=== PATIENT | male | born 1940 | race Two or more races ===

== ENCOUNTER 2022-11-07 19:58 | Inpatient (IN) | payer MEDICARE, OTHER ==
[~2022-11-07] VITALS: Ht 177.8 cm; Wt 93.9 kg
--- NOTE | 2022-11-07 21:16 | NUR ---
BIBSON FOR BLOOD IN STOOL +WEAKNESS. HYPOTENSIVE AND PALE ON ASSESSMENT HX OF STOMACH ULCER W TRANSFUSION. PLACED IN BED, AAOX3, BREATHING EVEN AND UNLABORED SATURATING AT 97%RA
[2022-11-07] MEDS ORDERED: IV NS 0.9% 1,000 ML BAG IV ONE (21:30)
--- NOTE | 2022-11-07 21:40 | NUR ---
FURNACE BUILDER AT BEDSIDE
[2022-11-07 21:55] LABS: BASOPHILS % (AUTO) 0.4 % (0.0-2.0); LYMPHOCYTES # (AUTO) 0.6 K/uL (0.8-4.8); LYMPHOCYTES % (AUTO) 8.3 % (20.0-44.0); MEAN CORPUSCULAR HGB CONC 32 g/dl (31.0-36.0); MEAN CORPUSCULAR VOLUME 89 fL (80-96); MONOCYTES # (AUTO) 0.4 K/uL (0.1-1.30); MONOCYTES % (AUTO) 5.5 % (2.0-12.0); NEUTROPHILS # (AUTO) 6.7 K/uL (1.8-8.9); NEUTROPHILS % (AUTO) 85.8 % (43.0-81.0); PLATELET COUNT (AUTO) 127 K/uL (150-450); RED BLOOD CELL COUNT(AUTO) 2.05 MIL/uL (4.5-6.0); WHITE BLOOD COUNT (AUTO) 7.8 K/uL (4.3-11.0)
[2022-11-07 21:58] LABS: HEMOGLOBIN 5.8 g/dL (13.5-17.5)
[2022-11-07 21:59] LABS: HEMATOCRIT 18 % (39-51)
--- NOTE | 2022-11-07 22:01 | NUR ---
COVID SWAB DONE AND SENT TO LAB
[2022-11-07 22:03] LABS: ALANINE AMINOTRANSFERASE 10 U/L (12-78); ALBUMIN 2.6 g/dL (3.4-5.0); ALKALINE PHOSPHATASE 32 U/L (46-116); ASPARTATE AMINOTRANSFERASE 11 U/L (15-37); BILIRUBIN,DIRECT 0.1 mg/dL (0.0-0.2); BILIRUBIN,TOTAL 0.5 mg/dL (0.2-1.0); CALCIUM, SERUM 8.3 mg/dL (8.5-10.1); CARBON DIOXIDE 18 mmol/L (21-32); CHLORIDE 107 mmol/L (98-107); CREATININE 1.4 mg/dL (0.6-1.3); GLUCOSE 168 mg/dL (74-106); POTASSIUM 4.2 mmol/L (3.5-5.1); SODIUM SERUM 138 mmol/L (136-145); TOTAL PROTEIN, SERUM 6.1 g/dL (6.4-8.2); UREA NITROGEN, BLOOD 51 mg/dL (7-18)
--- NOTE | 2022-11-07 22:15 | NUR ---
CALLED [facility],SPOKE TO JYOTI. [facility] CONTACTED FOR PEER TO PEER WITH HOSPITALIST AND ER
--- NOTE | 2022-11-07 22:32 | NUR ---
DR CHOW CALLED AND SPOKE TO DR PENN FOR PEER TO PEER
[2022-11-07] MEDS ORDERED: MAG HYDROX/AL HYDROX/SIMETH 30 ML UDC PO PRN (23:30)
[2022-11-07] MEDS ORDERED: IV 1/2NS 1000 ML 1,000 ML IV PRN (23:30)
[2022-11-07] MEDS ORDERED: ACETAMINOPHEN 325 MG TABLET PO PRN (23:30)
[2022-11-07] MEDS ORDERED: MAGNESIUM HYDROXIDE 30 ML UDC PO PRN (23:30)
[2022-11-07] MEDS ORDERED: ZOLPIDEM TARTRATE 5 MG TABLET PO PRN (23:30)
[2022-11-07] MEDS ORDERED: ONDANSETRON HCL/PF 4 MG/2 ML VIAL IVP PRN (23:30)
[2022-11-07] MEDS ORDERED: Z GUARD REMEDY 4 OZ OINT TP PRN (23:30)
[2022-11-08] VITALS (20 sets, daily range): BP systolic 93–120; BP diastolic 46–85
--- NOTE | 2022-11-08 00:11 | NUR ---
ROOM 120-T
--- NOTE | 2022-11-08 00:12 | NUR ---
ALLYSON/SHADI SIGNED BLOOD TRANSFUSION CONSENT FOR PATIENT
--- NOTE | 2022-11-08 00:16 | NUR ---
REPORT GIVEN TO BRICE SURESH
--- NOTE | 2022-11-08 00:50 | NUR ---
TRANSFERRED TO ROOM VIA ACLS PROTOCOL
--- NOTE | 2022-11-08 01:34 | NUR ---
BORDER GUARD ADMISSION NOTES ADMITTED A 82 YEAR OLD MALE UNDER THE SERVICE OF DR. CHOW, A/O X 3 JAMAICAN SPEAKING, ABLE TO FOLLOW COMMANDS. TRANSFERRED TO BED SAFELY AND SECURED. VITALS SIGNS TAKEN AND RECORDED. SKIN ASSESSMENT DONE NOTED LOWER EXTREMITIES SWELLING PICTURES TAKEN AND RECORDED, WITH IV ACCESS AT RIGHT FOREARM #20G PATENT AND INTACT. HISTORY TAKEN AND RECORDED HISTORY WAS GIVEN BY HIS SON. PM CARE RENDERED, PATIENT IS ON NPO FOR NOW, NOTED BLOOD IN THE STOOL. PATIENT IS FOR BLOOD TRANSFUSION AWAITING BLOOD. FAMILY AND PATIENT WAS ORIENTED TO THE UNIT POLICY AND VERBALIZED UNDERSTANDING. NO PAIN OR SOB NOTED AT THIS TIME, NO CHEST PAIN OR DISCOMFORT NOTED. KEPT BED ON LOWER LOCKED POSITION, KEPT SIDE RAILS UP X 3 ALL THE TIME, PATIENT IS ON TOTAL BED REST WITH URINAL AT BEDSIDE, KEPT CALL LIGHT WITHIN AT REACH. KEPT PATIENT WARM AND COMFORTABLE. WILL CONTINUE TO MONITOR FOR BOBBY.
--- NOTE | 2022-11-08 04:55 | NUR ---
COACH WIRER NOTES PATIENT IS POSITIVE TO ANTIBODY, AWAITING BLOOD FROM [facility] PER IMAN OF BLOOD BANK. DR. CHOW MADE AWARE. WILL CONTINUE TO MONITOR
[2022-11-08 05:33] LABS: BASOPHILS % (MANUAL) 0 % (0.0-2.0); EOSINOPHILS % (MANUAL) 2 % (0-4); LYMPHOCYTES % (MANUAL) 10 % (16-48); MONOCYTES % (MANUAL) 7 % (0-11.0); NEUTROPHILS % (MANUAL) 81 (42-76)
--- NOTE | 2022-11-08 06:48 | NUR ---
CHAUFFEUR MOTORBUS CLOSING NOTES PATIENT IS IN BED, AWAKE ON MODERATE HIGH BACK REST POSITION. A/O X 3 SPANISH SPEAKING BUT ABLE TO UNDERSTAND SIMPLE KOREAN, ON ROOM AIR BREATHING EVENLY AND UNLABORED. WITH IV ACCESS AT RIGHT FA #20G WITH NS 1/2 1L AT 75ML/HR INFUSING WELL NO SWELLING OR INFILTRATION NOTED. PATIENT IS ON NPO ORDERED. PATIENT IS POSITIVE ANTIBODY, STILL WAITING FOR BLOOD FROM [facility] DR. CHOW MADE AWARE. KEPT BED ON LOWER LOCKED POSITION, KEPT SIDE RAILS UP X 2 ALL THE TIME, KEPT CALL LIGHT WITHIN AT REACH. ALL DUE MEDICATIONS GIVEN, ALL NEEDS ATTENDED. SAFETY PRECAUTIONS MAINTAINED, NO ACTIVE BLEEDING NOTED, KEPT PATIENT WARM AND COMFORTABLE WILL ENDORSED TO NEXT SHIFT FOR BOBBY.
--- NOTE | 2022-11-08 07:05 | NUR ---
RN OPENING NOTE PATIENT IS IN BED, ASLEEP ON MODERATE HIGH BACK REST POSITION. A/O X 3 POLISH SPEAKING BUT ABLE TO UNDERSTAND SIMPLE CITIZEN OF [place], ON ROOM AIR BREATHING EVENLY AND UNLABORED. WITH IV ACCESS AT RIGHT FA #20G WITH NS 1/2 1L AT 75ML/HR INFUSING WELL NO SWELLING OR INFILTRATION NOTED. PATIENT IS ON NPO ORDERED. PATIENT IS POSITIVE ANTIBODY, STILL WAITING FOR BLOOD FROM [facility]. BED ON LOWER LOCKED POSITION, SIDE RAILS UP X 2 ALL THE TIME, CALL LIGHT WITHIN AT REACH. WILL CONTINUE TO MONITOR.
[2022-11-08 08:31] LABS: BASOPHILS % (AUTO) 0.3 % (0.0-2.0); LYMPHOCYTES # (AUTO) 0.4 K/uL (0.8-4.8); LYMPHOCYTES % (AUTO) 8.4 % (20.0-44.0); MEAN CORPUSCULAR HGB CONC 31 g/dl (31.0-36.0); MEAN CORPUSCULAR VOLUME 92 fL (80-96); MONOCYTES # (AUTO) 0.3 K/uL (0.1-1.30); MONOCYTES % (AUTO) 6.1 % (2.0-12.0); NEUTROPHILS # (AUTO) 3.7 K/uL (1.8-8.9); NEUTROPHILS % (AUTO) 85.2 % (43.0-81.0); PLATELET COUNT (AUTO) 92 K/uL (150-450); WHITE BLOOD COUNT (AUTO) 4.3 K/uL (4.3-11.0)
[2022-11-08 08:34] LABS: RED BLOOD CELL COUNT(AUTO) 1.47 MIL/uL (4.5-6.0)
[2022-11-08] MEDS: PANTOPRAZOLE 40 MG VIAL IV SCH (08:34)
[2022-11-08 08:35] LABS: HEMOGLOBIN 4.3 g/dL (13.5-17.5)
--- NOTE | 2022-11-08 08:35 | NUR ---
GOT PHONE ZULEIKA FROM LAB RE HGT CRITICAL VALUE, PATIENTS HEMOGLOBIN LEVEL IS 4.3 WILL CONTACT AND BLOOD BANK
[2022-11-08 08:36] LABS: HEMATOCRIT 14 % (39-51)
--- NOTE | 2022-11-08 08:38 | NUR ---
MOUNTER SMOKING PIPE NOTES Lab called to relay critical lab value HGB 4.3 and hematocrit 14. Made Primary nurse aware.
[2022-11-08 08:47] LABS: CALCIUM, SERUM 7.8 mg/dL (8.5-10.1); CREATININE 1.2 mg/dL (0.6-1.3); MAGNESIUM 1.9 mg/dL (1.8-2.4); PHOSPHORUS 3.1 mg/dL (2.5-4.9)
--- NOTE | 2022-11-08 08:50 | NUR ---
TRIED TO CONTACT BLOOD BANK, NO ANSWER, CHECK THE ORDER FOR CROSS AND MATCH, BLOOD IS NOT AVAILABLE BECAUSE ANTIBODIES.
--- NOTE | 2022-11-08 09:00 | NUR ---
TEXTED DR KAPLAN RE PT BLOOD RESULT
--- NOTE | 2022-11-08 09:15 | NUR ---
CONSULTED WITH NURSE ROSS CARRIER DRIVER. WAITING FOR [facility] BLOOD AVAILABILITY
--- NOTE | 2022-11-08 09:20 | NUR ---
NURSING DELIVERY PROFESSIONAL JOANNA SPOKE TO YUE VELASCO REGARDING FOR PT TSYMBALOV, REP FROM [facility] NAMED RACHEL CONFIRMED THAT THEY WORKING ON THIS ORDER BUT NO AVAILABILITY AT THIS TIME.
--- NOTE | 2022-11-08 09:25 | NUR ---
CALL [facility] TO REACH DR KAPLAN, REGARDING POSSIBLE GI CONSULT FOR THIS PT, LEFT A MESSAGE
--- NOTE | 2022-11-08 10:00 | NUR ---
called in and ok to consult to Dr Rivera and left message to telepnone and surgery department
[2022-11-08] MEDS ORDERED: IV 1/2NS 1000 ML 1,000 ML IV PRN (10:44)
[2022-11-08 11:07] LABS: BAND % (MANUAL) 3 % (0.0-5.0); BASOPHILS % (MANUAL) 0 % (0.0-2.0); EOSINOPHILS % (MANUAL) 1 % (0-4); LYMPHOCYTES % (MANUAL) 9 % (16-48); MONOCYTES % (MANUAL) 7 % (0-11.0); NEUTROPHILS % (MANUAL) 80 (42-76)
[2022-11-08 12:15] LABS: HEMOGLOBIN 3.9 g/dL (13.5-17.5)
--- NOTE | 2022-11-08 14:50 | NUR ---
TRANSFERRED PATIENT TO ICU D/T SEVERE ANEMIA, HGB 3.9 AT 11:50, WEAKNESS. WAITING TO GET BLOOD FROM [facility]. FAMILY NOTIFIED.
--- NOTE | 2022-11-08 14:50 | NUR ---
Admit to ICU Pt severe anemia. 1130 - Hgb 3.9 Scheduled to Received Blood Transfusion once received from [facility] Currently receiving plasma started in tele, infusing upon arrival. pt remains aaox4, utilized Ruassian viticulturist VSS, No distress noted 2nd IV started to Lt arm by ICU Charge nurse upon arrival.
--- NOTE | 2022-11-08 18:55 | NUR ---
Blood Transfusoion pending PRBC still not available at this time from [facility] Pt received 2units FFP as ordered. No overt signs of bleeding noted Cont IVF as ordered VSS, no respiratory distress noted
--- NOTE | 2022-11-08 19:59 | NUR ---
EMULSION COATER. INITIAL ASSESSMENT, RECEIVED THE PT REST IN BED. AWAKE, ALERT. FOLLOW COMMANDS. CLINICAL RECRUITER SHOWING NSR. IV RT AND LT HAND. PT IS ROOM AIR. SAT 98%. NO ACUTE DISTRESS NOTED.IVF 1.2 NS 150 ML/H. WILL CONTINUE TO MONITOR VITALS.
[2022-11-09] VITALS (38 sets, daily range): BP systolic 98–119; BP diastolic 43–86
--- NOTE | 2022-11-09 03:15 | NUR ---
FINANCIAL RESERVE CLERK. AM CARE GIVEN. REMAINING SAME IVF RUNNING. HOB ELEVATED. 2 UNITS PRBC GIVEN. DURING TRANSFUSION NO COMPLICATION NOTED. TURN AND REPOSITION Q2H. WILL CONTINUE TO MONITOR VITALS.
[2022-11-09 05:02] LABS: BASOPHILS % (AUTO) 0.5 % (0.0-2.0); EOSINOPHILS % (AUTO) 0.6 % (0.0-6.0); LYMPHOCYTES # (AUTO) 0.5 K/uL (0.8-4.8); LYMPHOCYTES % (AUTO) 12.3 % (20.0-44.0); MEAN CORPUSCULAR HGB CONC 34 g/dl (31.0-36.0); MEAN CORPUSCULAR VOLUME 85 fL (80-96); MONOCYTES # (AUTO) 0.4 K/uL (0.1-1.30); MONOCYTES % (AUTO) 11.7 % (2.0-12.0); NEUTROPHILS # (AUTO) 2.8 K/uL (1.8-8.9); NEUTROPHILS % (AUTO) 74.9 % (43.0-81.0); PLATELET COUNT (AUTO) 81 K/uL (150-450); WHITE BLOOD COUNT (AUTO) 3.8 K/uL (4.3-11.0)
[2022-11-09 05:10] LABS: HEMATOCRIT 15 % (39-51); RED BLOOD CELL COUNT(AUTO) 1.74 MIL/uL (4.5-6.0)
[2022-11-09 05:18] LABS: ALBUMIN 2.2 g/dL (3.4-5.0); BILIRUBIN,TOTAL 0.6 mg/dL (0.2-1.0); CALCIUM, SERUM 7.9 mg/dL (8.5-10.1); MAGNESIUM 1.8 mg/dL (1.8-2.4); PHOSPHORUS 3.3 mg/dL (2.5-4.9); POTASSIUM 3.6 mmol/L (3.5-5.1); TOTAL PROTEIN, SERUM 4.9 g/dL (6.4-8.2)
[2022-11-09 07:14] LABS: BILIRUBIN,URINE NEGATIVE (NEGATIVE); COLOR,URINE YELLOW (YELLOW); LEUKOCYTE ESTERASE ,URINE 1+ (NEGATIVE); NITRITE, URINE NEGATIVE (NEGATIVE); PH,URINE 5.5 (5.0-8.0); PROTEIN,URINE NEGATIVE (NEGATIVE); UGLUCOSE NEGATIVE (NEGATIVE); UROBILINOGEN,URINE 0.2 EU/dL (0.2)
--- NOTE | 2022-11-09 07:15 | NUR ---
ATM MECHANIC NOTE Patient is resting in bed, GCS [id number], bilateral pupils 3mm PEARLA. lunchroom monitor showed SR HR 60/min,MAP>65mmHg. SPo2 100% RA. Right hand and left forearm IV sites are dry and intact, patent upon flush. 1/2 NS running at 150mL/hr via right hand. Repositioning is done. Will continue monitoring and care.
[2022-11-09 07:48] LABS: BACTERIA,URINE Rare /HPF (None Seen); RBC,URINE 0-2 /HPF (0-2); SQUAMOUS EPITHELIAL CELL,UR Rare /HPF (None Seen)
[2022-11-09 08:44] LABS: BAND % (MANUAL) 4 % (0.0-5.0); EOSINOPHILS % (MANUAL) 1 % (0-4); LYMPHOCYTES % (MANUAL) 16 % (16-48); METAMYELOCYTES % 1 % (0-0); MONOCYTES % (MANUAL) 10 % (0-11.0); MYELOCYTES % 1 % (0-0); NEUTROPHILS % (MANUAL) 67 (42-76)
[2022-11-09] MEDS: PANTOPRAZOLE 40 MG VIAL IV SCH (08:50)
[2022-11-09] MEDS: IV D5/0.45 NACL 1,000 ML IV PRN ×2 (08:50→21:48)
--- NOTE | 2022-11-09 13:47 | NUR ---
VIDEO AND SOUND RECORDER NOTE Urine is collected for urine culture.
[2022-11-09 17:27] LABS: EOSINOPHILS % (AUTO) 3.5 % (0.0-6.0); LYMPHOCYTES # (AUTO) 0.3 K/uL (0.8-4.8); LYMPHOCYTES % (AUTO) 13.4 % (20.0-44.0); MEAN CORPUSCULAR HGB CONC 33 g/dl (31.0-36.0); MEAN CORPUSCULAR VOLUME 86 fL (80-96); MONOCYTES # (AUTO) 0.3 K/uL (0.1-1.30); MONOCYTES % (AUTO) 10.8 % (2.0-12.0); NEUTROPHILS # (AUTO) 1.9 K/uL (1.8-8.9); NEUTROPHILS % (AUTO) 71.3 % (43.0-81.0); PLATELET COUNT (AUTO) 78 K/uL (150-450); WHITE BLOOD COUNT (AUTO) 2.6 K/uL (4.3-11.0)
[2022-11-09 17:36] LABS: RED BLOOD CELL COUNT(AUTO) 1.94 MIL/uL (4.5-6.0)
[2022-11-09 17:37] LABS: HEMOGLOBIN 5.5 g/dL (13.5-17.5)
[2022-11-09 17:38] LABS: HEMATOCRIT 17 % (39-51)
--- NOTE | 2022-11-09 17:42 | NUR ---
PROGRAM STRATEGIST NOTE Received a critical lab that hemoglobin is 5.5 g/dL with Hct 17. Informed MD Dr. Cordero, who ordered another unit of blood.
--- NOTE | 2022-11-09 20:01 | NUR ---
CALLED BLOOD BANK, PER CLS LAST BAG OF PRBC NOT READY YET.
[2022-11-09 20:13] LABS: BAND % (MANUAL) 4 % (0.0-5.0); EOSINOPHILS % (MANUAL) 6 % (0-4); LYMPHOCYTES % (MANUAL) 14 % (16-48); MONOCYTES % (MANUAL) 2 % (0-11.0); NEUTROPHILS % (MANUAL) 74 (42-76)
--- NOTE | 2022-11-09 20:50 | NUR ---
4TH BAG OF PRBC STARTED AT THIS TIME WITH VITAL SIGNS WNL.
--- NOTE | 2022-11-09 20:54 | NUR ---
FAMILY PSYCHOLOGIST OPENING NOTE PT RECEIVED IN BED WITH SON AT BEDSIDE; AWAKE, HONDURAN-SPEAKING, A/O X4, CALM, COOPERATIVE. PT ON RA WITH CURRENT O2SAT OF 99%; NO S/S OF RESP DISTRESS, NO SOB, NON-LABORED AND EQUAL BREATHING. PT ATTACHED TO BEDSIDE MONITOR, SR WITH HR OF 63. PT'S SKIN APPEARS PALE, CAP REFILL <3 SEC, NORMAL AND PALPABLE PULSES. LEFT LEG NOTED TO BE EDEMATOUS AND INCREASED IN SIZE; PULSES PALPABLE AND CAP REFILL <3 SEC; NO PAIN PER PT REPORT. IV ACCESS ON RFA AND LFA 20G, INTACT AND PATENT WITH D5 1/2 NS INFUSING AT 150 ML/HR. BED IN LOWEST POSITION, CALL LIGHT WITHIN REACH, SIDE RAILS UP X2. WILL CONTINUE TO MONITOR THROUGHOUT THE NIGHT.
--- NOTE | 2022-11-09 23:05 | NUR ---
PRBC TRANSFUSION FINISHED AT THIS TIME WITH VITAL SIGNS STABLE, NO COMPLICATIONS NOTED; PT TOLERATED TRANSFUSION WELL
[2022-11-10] VITALS (26 sets, daily range): BP systolic 90–118; BP diastolic 37–65
[2022-11-10 04:10] LABS: BASOPHILS % (AUTO) 1.5 % (0.0-2.0); EOSINOPHILS % (AUTO) 4.8 % (0.0-6.0); LYMPHOCYTES # (AUTO) 0.4 K/uL (0.8-4.8); LYMPHOCYTES % (AUTO) 17.9 % (20.0-44.0); MEAN CORPUSCULAR HGB CONC 34 g/dl (31.0-36.0); MEAN CORPUSCULAR VOLUME 88 fL (80-96); MONOCYTES # (AUTO) 0.2 K/uL (0.1-1.30); MONOCYTES % (AUTO) 11.9 % (2.0-12.0); NEUTROPHILS # (AUTO) 1.3 K/uL (1.8-8.9); NEUTROPHILS % (AUTO) 63.9 % (43.0-81.0); PLATELET COUNT (AUTO) 72 K/uL (150-450); WHITE BLOOD COUNT (AUTO) 2.1 K/uL (4.3-11.0)
[2022-11-10 04:19] LABS: RED BLOOD CELL COUNT(AUTO) 1.97 MIL/uL (4.5-6.0)
[2022-11-10 04:20] LABS: HEMATOCRIT 17 % (39-51); HEMOGLOBIN 5.8 g/dL (13.5-17.5)
[2022-11-10 04:25] LABS: ALBUMIN 2.1 g/dL (3.4-5.0); BILIRUBIN,TOTAL 0.7 mg/dL (0.2-1.0); CALCIUM, SERUM 7.5 mg/dL (8.5-10.1); CREATININE 0.9 mg/dL (0.6-1.3); MAGNESIUM 1.7 mg/dL (1.8-2.4); PHOSPHORUS 2.5 mg/dL (2.5-4.9); POTASSIUM 3.2 mmol/L (3.5-5.1); TOTAL PROTEIN, SERUM 4.7 g/dL (6.4-8.2)
--- NOTE | 2022-11-10 04:43 | NUR ---
RN NOTE RECEIVED CRITICAL FROM LAB; HGB/HCT 5.8/17; THOUGH TRENDING UP CONTINUES TO BE LOW AFTER 2 PRBCS TRANSFUSED YESTERDAY (1 IN AM, 1 IN PM). VELIA CHOW NOTIFIED; AWAITING RESPONSE. Addendum: 11/10/22 at 0623 by PRINCESS SLOANE NARVAEZ RECEIVED ORDER FROM CLAUDINE FOR 1 UNIT PRBC
[2022-11-10] MEDS: IV D5/0.45 NACL 1,000 ML IV PRN (05:15)
[2022-11-10 05:48] LABS: BAND % (MANUAL) 4 % (0.0-5.0); BASOPHILS % (MANUAL) 0 % (0.0-2.0); EOSINOPHILS % (MANUAL) 4 % (0-4); LYMPHOCYTES % (MANUAL) 15 % (16-48); MONOCYTES % (MANUAL) 9 % (0-11.0); NEUTROPHILS % (MANUAL) 68 (42-76)
--- NOTE | 2022-11-10 06:44 | NUR ---
TAKER OFF BRAKER MACHINE CLOSING NOTE PT REMAINS IN BED, ASLEEP, EASILY AROUSABLE, A/O X4. CONTINUES TO BE ON RA WITH O2SAT RANGING FROM 97%-100%; NO S/S OF RESP DISTRESS, NO SOB, NON-LABORED AND EQUAL BREATHING. ATTACHED TO BEDSIDE MONITOR, SB-SR WITH HR RANGING FROM 49-63. RFA AND LFA 20G INTACT AND PATENT, FLUSHES EASILY WITH NO RESISTANCE; D51/2 NS INFUSING AT 150 ML/HR. ALL DUE MEDS ADMINISTERED DURING THE NIGHT. BED IN LOWEST POSITION, CALL LIGHT WITHIN REACH, SIDE RAILS UP X2. WILL ENDORSE TO DAYSHIFT NURSE TO CONTINUE CARE.
[2022-11-10] MEDS: PANTOPRAZOLE 40 MG VIAL IV SCH ×2 (09:24→20:48)
[2022-11-10] MEDS: POTASSIUM CL. PREMIX PERIPHER. 50 ML IV SCH ×4 (09:24→12:28)
[2022-11-10] MEDS: Magnesium 1GM/D5W 100ML PREMIX 100 ML IV SCH ×2 (11:20→12:19)
--- NOTE | 2022-11-10 19:15 | NUR ---
Verbal bedside report received from Rock NARVAEZ day primary . Pt. is awake in bed watching TV. pharmacy stock clerk in usedepicting SB with no ectopic beats at this time. VS monitored q 1 hr. per unit protocol. Complete inital assessment rendered . See nursing flowsheet for details. Chart reveiwed. Lab orders discussed with the laboratory analyst Hunter. New labs will be drawn in the A.M. Pt. with no c/o or concerns at this time. Monitored for acute distress,s/s of bleeding, pain and overall change in clinical status.
--- NOTE | 2022-11-10 20:30 | NUR ---
Pt. son Daniel in visiting. Plan of care discussed. Son states his father has slow recovery from his past EGD's and colonoscopy. Said pt. stays disoriented and confused for several days after procedures. Awaiting lab results to decide further care per son.
--- NOTE | 2022-11-10 21:45 | NUR ---
Radiology dept. called to give results of venous scan. Pt.has DVT's in bilat. lower extremities. Isak Borja CHAIRMAN & CHIEF EXECUTIVE OFFICER notified via text message immediately. No interventions ordered at this time. Pt. hgb. very low and is GI bleeding.
[2022-11-11] VITALS (38 sets, daily range): BP systolic 91–150; BP diastolic 46–83
[2022-11-11 03:12] LABS: MEAN CORPUSCULAR HGB CONC 34 g/dl (31.0-36.0); MEAN CORPUSCULAR VOLUME 86 fL (80-96); MONOCYTES # (AUTO) 0.3 K/uL (0.1-1.30)
[2022-11-11 03:27] LABS: RED BLOOD CELL COUNT(AUTO) 2.33 MIL/uL (4.5-6.0); WHITE BLOOD COUNT (AUTO) 2.3 K/uL (4.3-11.0)
[2022-11-11 03:28] LABS: BASOPHILS % (AUTO) 1.3 % (0.0-2.0); EOSINOPHILS % (AUTO) 5.7 % (0.0-6.0); LYMPHOCYTES % (AUTO) 15.3 % (20.0-44.0); MONOCYTES % (AUTO) 14.9 % (2.0-12.0); NEUTROPHILS % (AUTO) 62.8 % (43.0-81.0); PLATELET COUNT (AUTO) 80 K/uL (150-450)
[2022-11-11 03:29] LABS: ALANINE AMINOTRANSFERASE 13 U/L (12-78); ALBUMIN 2.2 g/dL (3.4-5.0); ALKALINE PHOSPHATASE 36 U/L (46-116); ASPARTATE AMINOTRANSFERASE 17 U/L (15-37); BILIRUBIN,TOTAL 1.4 mg/dL (0.2-1.0); CALCIUM, SERUM 7.5 mg/dL (8.5-10.1); CARBON DIOXIDE 20 mmol/L (21-32); CHLORIDE 114 mmol/L (98-107); CREATININE 0.9 mg/dL (0.6-1.3); GLUCOSE 101 mg/dL (74-106); LYMPHOCYTES # (AUTO) 0.4 K/uL (0.8-4.8); NEUTROPHILS # (AUTO) 1.5 K/uL (1.8-8.9); POTASSIUM 3.4 mmol/L (3.5-5.1); SODIUM SERUM 142 mmol/L (136-145); UREA NITROGEN, BLOOD 28 mg/dL (7-18)
[2022-11-11 03:31] LABS: HEMATOCRIT 20 % (39-51); HEMOGLOBIN 6.7 g/dL (13.5-17.5)
--- NOTE | 2022-11-11 03:32 | NUR ---
LATE ENTRY:ASSISTANT PRODUCE MANAGER: 11/10/22 @1900.ENDED BT OF I UNIT PRBC W/ NO REACTION VITAL SIGNS:TEMPT.-97.9/F ORAL,BP-116/42,HR-53, RR-13/MIN. SATS.-100%.
[2022-11-11 03:36] LABS: D-DIMER 14.53 mg/L(FEU (0.17-0.50)
[2022-11-11 03:46] LABS: PROSTATE SPECIFIC ANTIGEN SCR 0.35 ng/mL (0.00-4.00)
[2022-11-11] MEDS: IV D5/0.45 NACL 1,000 ML IV PRN ×3 (05:49→18:57)
[2022-11-11 06:26] LABS: EOSINOPHILS % (MANUAL) 4 % (0-4); LYMPHOCYTES % (MANUAL) 17 % (16-48); MONOCYTES % (MANUAL) 10 % (0-11.0); NEUTROPHILS % (MANUAL) 69 (42-76)
--- NOTE | 2022-11-11 07:21 | NUR ---
Pt. endorsed injury free to oncoming primary RN. VSS stable. no c/o or concerns addressed from pt. at this time.
[2022-11-11] MEDS: PANTOPRAZOLE 40 MG VIAL IV SCH ×2 (08:03→21:46)
--- NOTE | 2022-11-11 09:17 | NUR ---
PER BLOOD BANK DEPT. -NOVEMBER " I WILL CALL BACK ONCE 2nd FFP BAG IS READY."
[2022-11-11 09:33] LABS: IRON, SERUM 46 ug/dl (50-175); TOTAL IRON BINDING CAPACITY 201 ug/dl (250-450)
[2022-11-11 09:46] LABS: D-DIMER 13.91 mg/L(FEU (0.17-0.50)
[2022-11-11 09:47] LABS: FERRITIN 160 ng/mL (8-388)
[2022-11-11] MEDS: POTASSIUM CL. PREMIX PERIPHER. 50 ML IV SCH ×2 (10:23→11:27)
[2022-11-11 10:28] LABS: C-REACTIVE PROTEIN < 0.2 mg/dL (0.0-0.9)
[2022-11-11] MEDS ORDERED: PHYTONADIONE INJ 10 MG/1 ML AMPUL SQ SCH (10:30)
[2022-11-11] MEDS ORDERED: ACETAMINOPHEN 325 MG TABLET PO ONE (10:30)
[2022-11-11] MEDS ORDERED: diphenhydrAMINE HCL 50 MG/ML VIAL IV ONE (10:30)
--- NOTE | 2022-11-11 11:10 | NUR ---
NOTIFIED DR RENE THAT 2ND BAG OF FFP IS TRANSFUSING AND VERIFIED REGARDING TYLENOL AND BENADRYL, PER DR RENE " OKAY NOT TO GIVE BENADRYL AND TYLENOL NOW."
[2022-11-11] MEDS: CEFEPIME 2 GM in IV D5W 100 ML IV SCH ×2 (13:44→21:46)
--- NOTE | 2022-11-11 13:50 | NUR ---
PER BLOOD BANK FEMALE STAFF- MAY " CRYO NOT YET READY." CHARGE NURSE-RCISSY AWARE.
--- NOTE | 2022-11-11 14:15 | NUR ---
ENDORSED TO RN-DENISE FOR CONTINUITY OF CARE. PATIENT NO SSX OF APPARENT DISTRESS NOTED AT THIS TIME.
--- NOTE | 2022-11-11 14:16 | NUR ---
POT WASHER NOTE RECEIVED PATIENT IN BED RESTING ALERT ORIENTED X4 JORDANIAN SPEAKING,ON ROOM AIR O2:99% IV SITE IS ON RIGHT MIDLINE AND RIGHT FOREARM,LEFT FOREARM INTACT PATENT CONTINENT BOWEL/BLADDER.ON IV HYDRATION D51/2NS 150CC/HR,SAFETY MEASURE IMPLEMENT BED IN LOW POSITON AND LOCKED CALL LIGHT WITHIN REACH CONTINUE TO MONITOR.
--- NOTE | 2022-11-11 16:59 | NUR ---
RN NOTE 2 BAG OF CRYO GIVEN PER MD ORDERED CONTINUE TO MONITOR.
[2022-11-11] MEDS ORDERED: FERROUS SULFATE (325 MG) 325 MG/TAB TABLET PO SCH (17:00)
--- NOTE | 2022-11-11 17:00 | NUR ---
RN NOTE PER DR RENE,PATIENT SHOULD CONSULT WITH VACULAGlenn EAVNS NOTIFIED CORPORATE CLAIMS EXAMINER NANCY MUNOZ,CONTINUE TO MONITOR.
[2022-11-11] MEDS: FERROUS SULFATE (325 MG) 325 MG/TAB TABLET PO SCH (17:04)
--- NOTE | 2022-11-11 18:42 | NUR ---
RN NOTE PATIENT REMAINS ALERT ORIENTED X4 VERBALLY RESPONSIVE ON ROOM AIR O2:100% NO SOB NOT ACUTE DISTRESS NOTED,NO PAIN WILL ENDORSE NEXT COMING SHIFT FOR CONTINUATION OF CARE.
--- NOTE | 2022-11-11 19:23 | NUR ---
RECEIVED PATIENT IN BED, AWAKE AND RESTING COMFORTABLY. ALERT ORIENTED X4 ANGUILLAN SPEAKING,ON ROOM AIR. WITH AN O2SAT OF 99%. ON NPO EXCEPT MEDS. CONTINENT AND ABLE TO URINATE USING URINAL. IV SITE IS ON TINO MIDLINE, RIGHT FOREARM AND LEFT FOREARM INFUSING D51/2NS AT 150 ML/HR. SAFETY MEASURES IN PLACE. HOB ELEVATED. SIDERAILS UP X2. CALL LIGHT WITHIN REACH. WILL CONTINUE PLAN OF CARE.
[2022-11-12] VITALS (39 sets, daily range): BP systolic 89–148; BP diastolic 51–90
[2022-11-12] MEDS: IV D5/0.45 NACL 1,000 ML IV PRN ×3 (01:17→15:50)
[2022-11-12] MEDS: CEFEPIME 2 GM in IV D5W 100 ML IV SCH ×3 (04:10→20:09)
[2022-11-12 04:17] LABS: EOSINOPHILS % (AUTO) 6.7 % (0.0-6.0); HEMATOCRIT 21 % (39-51); LYMPHOCYTES # (AUTO) 0.3 K/uL (0.8-4.8); LYMPHOCYTES % (AUTO) 14.3 % (20.0-44.0); MEAN CORPUSCULAR HGB CONC 32 g/dl (31.0-36.0); MEAN CORPUSCULAR VOLUME 91 fL (80-96); MONOCYTES # (AUTO) 0.4 K/uL (0.1-1.30); MONOCYTES % (AUTO) 15.8 % (2.0-12.0); NEUTROPHILS # (AUTO) 1.4 K/uL (1.8-8.9); NEUTROPHILS % (AUTO) 62.2 % (43.0-81.0); PLATELET COUNT (AUTO) 92 K/uL (150-450); WHITE BLOOD COUNT (AUTO) 2.2 K/uL (4.3-11.0)
[2022-11-12 04:23] LABS: CALCIUM, SERUM 7.9 mg/dL (8.5-10.1); CREATININE 0.9 mg/dL (0.6-1.3); POTASSIUM 3.2 mmol/L (3.5-5.1)
[2022-11-12 04:35] LABS: HEMOGLOBIN 6.6 g/dL (13.5-17.5)
--- NOTE | 2022-11-12 04:41 | NUR ---
Hgb 6.6, Hct 21. Attending physician informed. PRBCx2 previously ordered. Waiting for PRBC to be ready.
[2022-11-12 04:50] LABS: D-DIMER 14.95 mg/L(FEU (0.17-0.50)
--- NOTE | 2022-11-12 07:05 | NUR ---
RN NOTES RECEIVED PT ON BED, ALERT ORIENTED X3. SURINAMESE SPEAKING. ON ROOM AIR, ON TELE SB HR IN MURIEL 50'S, ON NPO EXCEPT MEDS. CONTINENT AND ABLE TO URINATE USING URINAL. IV SITES CLEAN/ DRY AND INTACT,IVF D51/2NS AT 150 ML/HR. SAFETY MEASURES MAINTAINED. SR UP x3, HOB ELEVATED. CALL LIGHT WITHIN EASY REACH, BED LOCKED AND IN LOWEST POSITION, CONTINUE TO MONITOR.
--- NOTE | 2022-11-12 07:12 | NUR ---
PATIENT IN BED, ASLEEP AND RESTING COMFORTABLY. EASILY AROUSABLE/RESPOSIVE. ALERT ORIENTED X4. BERMUDIAN SPEAKING. ON ROOM AIR. WITH AN O2SAT OF 99%. HR 58. ON NPO EXCEPT MEDS. CONTINENT AND ABLE TO URINATE USING URINAL. IV SITE IS ON TINO MIDLINE, RIGHT FOREARM AND LEFT FOREARM INFUSING D51/2NS AT 150 ML/HR. SAFETY MEASURES MAINTAINED. HOB ELEVATED. SIDERAILS UP X2. CALL LIGHT WITHIN REACH. WILL ENDORSE TO NEXT NURSE ON DUTY FOR CONTINUITY OF CARE.
[2022-11-12] MEDS: FERROUS SULFATE (325 MG) 325 MG/TAB TABLET PO SCH ×2 (08:27→16:07)
[2022-11-12] MEDS: PANTOPRAZOLE 40 MG VIAL IV SCH ×2 (08:27→20:09)
[2022-11-12] MEDS: POTASSIUM CL. PREMIX PERIPHER. 50 ML IV SCH ×4 (09:45→13:34)
--- NOTE | 2022-11-12 13:00 | NUR ---
RN NOTES BLOOD IS NOT AVAILABLE PER BLOOD BANK . CONTINUE TO FOLLOW UP AND MONITOR PT .
[2022-11-12 13:07] LABS: *ANA ANTI-CENTROMERE B AB <0.2 AI (0.0-0.9); *ANA ANTI-DNA(DS) AB, QN <1 IU/mL (0-9); *ANA ANTI-JO-1 <0.2 AI (0.0-0.9); *ANA ANTICHROMATIN ANTIBODY <0.2 AI (0.0-0.9); *ANA RNP ANTIBODIES 0.8 AI (0.0-0.9); *ANA SJOGREN'S ANTI-SS-A <0.2 AI (0.0-0.9); *ANA SJOGREN'S ANTI-SS-B <0.2 AI (0.0-0.9); *ANAANTI-SCLERODERMA-70 AB <0.2 AI (0.0-0.9); *ANASMITH AB <0.2 AI (0.0-0.9)
[2022-11-12 13:59] LABS: BAND % (MANUAL) 1 % (0.0-5.0); EOSINOPHILS % (MANUAL) 7 % (0-4); LYMPHOCYTES % (MANUAL) 13 % (16-48); MONOCYTES % (MANUAL) 8 % (0-11.0); NEUTROPHILS % (MANUAL) 71 (42-76)
--- NOTE | 2022-11-12 18:03 | NUR ---
RN NOTES PT SON STATED ,HE WANTS TO TALK TO PT'S PRIMARY CARE OUTSIDE AND WILL LET US KNOW IF THEY WANT TO PRECEDE WITH BONE MARROW BX.
[2022-11-12] MEDS ORDERED: LIDOCAINE 1% INJ 50 ML MDV IJ ONE (18:30)
--- NOTE | 2022-11-12 18:37 | NUR ---
RN NOTES NO SIGN OF ACTIVE BLEEDING NOTED, PT DENIES ANY DISTRESS AT THIS TIME, WILL ENDORSE TO DECORATING MACHINE TENDER NURSE FOR CONTINUITY OF CARE .
--- NOTE | 2022-11-12 19:00 | NUR ---
RN NOTE REPORT RECEIVED FROM JESI NARVAEZ, PT IN BED, IN NO ACUTE DISTRESS, AO X 4, BREATHING UNLABORED, SATURATION AT 99% ON ROOM AIR, SR ON THE MONITOR, HR IS 61. IV LINE AT RFA 20G, LFA 20G AND TINO MIDLINE ALL PATENT AND FLUSHING WELL, WITH D5 1/2 NS INFUSING AT 150 ML/HR. PT IS CONTINENT AND ABLE TO USE URINAL, NOTED 300 ML OF CLEAR, YELLOW OUTPUT. SAFETY MEASURES IN PLACE, BED IS LOCKED AND AT LOWEST POSITION, HOB ELEVATED, CALL LIGHT WITHIN REACH OF PATIENT. PATIENT KEPT NPO PER ORDERS. WILL CONTINUE TO MONITOR AND REASSESS. AWAITING TRANSFUSION OF 2 MORE UNITS OF PRBC.
--- NOTE | 2022-11-12 19:22 | NUR ---
RN NOTE DR RENE AT BEDSIDE, PER FAMILY WILL CONSULT PT'S PRIMARY MD BEFORE DECIDING ON EGD, AND BONE MARROW BIOPSY. DR RENE WAS MADE AWARE. ORDERED SUPPLIES NEEDED FOR BONE MARROW BIOPSY PREPARED AND PLACED AT BEDSIDE.
[2022-11-12] MEDS: SOD FERRIC GLUC 125 MG in IV NS 0.9% 100 ML IV SCH (19:32)
[2022-11-12] MEDS ORDERED: diphenhydrAMINE HCL 50 MG/ML VIAL IV ONE (21:00)
[2022-11-12] MEDS ORDERED: ACETAMINOPHEN 325 MG TABLET PO ONE (21:00)
[2022-11-13] VITALS (27 sets, daily range): BP systolic 113–154; BP diastolic 47–80
--- NOTE | 2022-11-13 02:20 | NUR ---
RN NOTE END OF TRANSFUSION, S/P 2 UNITS PRBC. NO TRANSFUSION REACTION NOTED, VS ARE WNL.
[2022-11-13] MEDS: IV D5/0.45 NACL 1,000 ML IV PRN ×3 (04:59→21:50)
[2022-11-13] MEDS: CEFEPIME 2 GM in IV D5W 100 ML IV SCH ×3 (05:02→21:48)
[2022-11-13 05:08] LABS: *IFE ALPHA-2-GLOBULIN 0.3 g/dL (0.4-1.0)
[2022-11-13 05:11] LABS: BASOPHILS % (AUTO) 1.4 % (0.0-2.0); EOSINOPHILS % (AUTO) 8.9 % (0.0-6.0); HEMATOCRIT 24 % (39-51); HEMOGLOBIN 8.1 g/dL (13.5-17.5); LYMPHOCYTES # (AUTO) 0.4 K/uL (0.8-4.8); LYMPHOCYTES % (AUTO) 14.1 % (20.0-44.0); MEAN CORPUSCULAR HGB CONC 33 g/dl (31.0-36.0); MEAN CORPUSCULAR VOLUME 86 fL (80-96); MONOCYTES # (AUTO) 0.5 K/uL (0.1-1.30); MONOCYTES % (AUTO) 18.7 % (2.0-12.0); NEUTROPHILS # (AUTO) 1.5 K/uL (1.8-8.9); NEUTROPHILS % (AUTO) 56.9 % (43.0-81.0); PLATELET COUNT (AUTO) 103 K/uL (150-450); RED BLOOD CELL COUNT(AUTO) 2.82 MIL/uL (4.5-6.0); WHITE BLOOD COUNT (AUTO) 2.7 K/uL (4.3-11.0)
[2022-11-13 05:26] LABS: D-DIMER 16.57 mg/L(FEU (0.17-0.50)
[2022-11-13 05:45] LABS: CARBON DIOXIDE 22 mmol/L (21-32); CHLORIDE 112 mmol/L (98-107); CREATININE 0.9 mg/dL (0.6-1.3); GLUCOSE 103 mg/dL (74-106); POTASSIUM 3.8 mmol/L (3.5-5.1); SODIUM SERUM 143 mmol/L (136-145); UREA NITROGEN, BLOOD 14 mg/dL (7-18)
--- NOTE | 2022-11-13 07:00 | NUR ---
RN NOTES RECEIVED PT ON BED, ALERT ORIENTED X3. CAPE VERDEAN SPEAKING. ON ROOM AIR, ON TELE SB HR IN MURIEL 50'S, ON NPO EXCEPT MEDS. CONTINENT AND ABLE TO URINATE USING URINAL. IV SITES CLEAN/ DRY AND INTACT,IVF D51/2NS AT 150 ML/HR. SAFETY MEASURES MAINTAINED. SR UP x3, HOB ELEVATED. CALL LIGHT WITHIN EASY REACH, BED LOCKED AND IN LOWEST POSITION, CONTINUE TO MONITOR.
[2022-11-13] MEDS: PANTOPRAZOLE 40 MG VIAL IV SCH ×2 (08:08→21:48)
[2022-11-13] MEDS: FERROUS SULFATE (325 MG) 325 MG/TAB TABLET PO SCH ×2 (08:09→16:09)
--- NOTE | 2022-11-13 09:42 | NUR ---
RN NOTES PT AND PT'S SON REFUSED BONE MARROW BX , DR RENE AND PRIMARY NOTIFIED .
[2022-11-13] MEDS ORDERED: ACETAMINOPHEN 325 MG TABLET PO ONE (13:30)
[2022-11-13] MEDS ORDERED: diphenhydrAMINE HCL 50 MG/ML VIAL IV ONE (13:30)
--- NOTE | 2022-11-13 13:46 | NUR ---
RN NOTES PT REFUSED AM AND PM CARE .
[2022-11-13] MEDS: SOD FERRIC GLUC 125 MG in IV NS 0.9% 100 ML IV SCH (14:35)
--- NOTE | 2022-11-13 18:53 | NUR ---
RN NOTES PT RECEIVED CRYO x2 ON THIS SHIFT, VSS STABLE , SON AT THE BEDSIDE, NO SIGN OF ACTIVE BLEEDING NOTED ON THIS SHIFT, NO DISTESS NOTED, WILL ENDORSE TO LEAD JAVA J2EE DEVELOPER NURSE FOR CONTINUITY OF CARE
[2022-11-13 21:47] LABS: BAND % (MANUAL) 2 % (0.0-5.0); EOSINOPHILS % (MANUAL) 12 % (0-4); LYMPHOCYTES % (MANUAL) 14 % (16-48); MONOCYTES % (MANUAL) 6 % (0-11.0); NEUTROPHILS % (MANUAL) 66 (42-76)
[2022-11-14] VITALS (8 sets, daily range): BP systolic 115–170; BP diastolic 48–70
[2022-11-14] MEDS: CEFEPIME 2 GM in IV D5W 100 ML IV SCH (04:05)
--- NOTE | 2022-11-14 04:16 | NUR ---
GAS WELDING EQUIPMENT MECHANIC. AM CARE GIVEN. REMAINING SAME ROOM AIR TOLERATED WELL. SAT 97%. NO ACUTE DISTRESS NOTED. MEXICAN FOOD COOK SHOWING S REAGAN. HOB ELEVATED. IV RT UPPER ARM MID LINE IVF D5 1/2 NS @ 150 ML/H. WILL CONTINUE TO MONITOR VITALS.
[2022-11-14] MEDS ORDERED: IV 1/2NS 1000 ML 1,000 ML IV PRN (05:00)
[2022-11-14 05:05] LABS: EOSINOPHILS % (AUTO) 7.5 % (0.0-6.0); HEMATOCRIT 24 % (39-51); HEMOGLOBIN 7.9 g/dL (13.5-17.5); LYMPHOCYTES # (AUTO) 0.4 K/uL (0.8-4.8); MEAN CORPUSCULAR HGB CONC 33 g/dl (31.0-36.0); MEAN CORPUSCULAR VOLUME 87 fL (80-96); MONOCYTES # (AUTO) 0.4 K/uL (0.1-1.30); MONOCYTES % (AUTO) 15.3 % (2.0-12.0); NEUTROPHILS # (AUTO) 1.7 K/uL (1.8-8.9); NEUTROPHILS % (AUTO) 62.2 % (43.0-81.0); PLATELET COUNT (AUTO) 120 K/uL (150-450); WHITE BLOOD COUNT (AUTO) 2.7 K/uL (4.3-11.0)
[2022-11-14 05:22] LABS: D-DIMER 12.24 mg/L(FEU (0.17-0.50)
[2022-11-14 05:26] LABS: ALANINE AMINOTRANSFERASE 14 U/L (12-78); ALBUMIN 2.5 g/dL (3.4-5.0); ALKALINE PHOSPHATASE 48 U/L (46-116); ASPARTATE AMINOTRANSFERASE 17 U/L (15-37); BILIRUBIN,TOTAL 1.7 mg/dL (0.2-1.0); CALCIUM, SERUM 8.1 mg/dL (8.5-10.1); CARBON DIOXIDE 20 mmol/L (21-32); CHLORIDE 112 mmol/L (98-107); GLUCOSE 107 mg/dL (74-106); POTASSIUM 3.4 mmol/L (3.5-5.1); SODIUM SERUM 142 mmol/L (136-145); TOTAL PROTEIN, SERUM 5.9 g/dL (6.4-8.2); UREA NITROGEN, BLOOD 16 mg/dL (7-18)
--- NOTE | 2022-11-14 05:30 | NUR ---
MAINTENANCE CONSTRUCTION HELPER. TRANSFER THE PT TO ROOM 325. REPORT GIVEN TO LELO NARVAEZ. PT VITALS ARE STABLE. NO ACTIVE BLEEDING NOTED.
--- NOTE | 2022-11-14 06:46 | NUR ---
RN CLOSING NOTE PATIENT IN BED, AWAKE AND RESTING COMFORTABLY. ALERT ORIENTED X4. TURKISH SPEAKING. ON ROOM AIR. WITH AN O2SAT OF 99%.S. CONTINENT AND ABLE TO URINATE USING URINAL. IV SITE IS ON TINO MIDLINE, RIGHT FOREARM AND LEFT FOREARM INFUSING D51/2NS AT 150 ML/HR. SAFETY MEASURES MAINTAINED. HOB ELEVATED. SIDERAILS UP X2. CALL LIGHT WITHIN REACH. WILL ENDORSE TO NEXT NURSE ON DUTY FOR CONTINUITY OF CARE.
--- NOTE | 2022-11-14 07:30 | NUR ---
MULTIMEDIA SPECIALIST OPENING NOTES RECEIVED PATIENT ON BED AWAKE AND A/O X4, AMERICAN SPEAKING. ON ROOM AIR TOLERATING WELL. NO SOB NOTED. NOT IN DISTRESS. WITH NO COMPLAINTS OF PAIN AT THIS TIME. WITH IV ACCESS AT THE RIGHT UPPER ARM MIDLINE WITH ONGOING D5 1/2NS AT 150ML/HR INFUSING WELL. WITH PIV LINES AT THE LEFT AND LEFT FOREARM G20, BOTH SALINE LOCKED, PATENT AND INTACT. 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 SAFETY MEASURES IN PLACED. CALL LIGHT WITHIN REACH. BED ON LOWEST LOCKED POSITION, SIDE RAILS UP X2. WILL CONTINUE TO MONITOR.
[2022-11-14] MEDS: PANTOPRAZOLE 40 MG VIAL IV SCH (09:04)
[2022-11-14] MEDS: FERROUS SULFATE (325 MG) 325 MG/TAB TABLET PO SCH (09:04)
[2022-11-14] MEDS ORDERED: POTASSIUM CHLORIDE 20 MEQ POWDER PACKET PO ONE (10:00)
[2022-11-14] MEDS ORDERED: FERR325T28 PO (11:52)
--- NOTE | 2022-11-14 13:00 | NUR ---
CAREER COORDINATOR NOTES PATIENT WAS SEEN BY NANCY MORE NP AND ORDERED PATIENT FOR DISCHARGE TO HOME. DISCHARGE INSTRUCTION PROVIDED TO PATIENT AND SON. THEY VERBALIZED UNDERSTANDING. DISCHARGE AND BELONGINGS LIST FORM SIGNED. REMOVED IV LINES. ASSISTED PATIENT TO THE LOBBY VIA WHEELCHAIR AND LEFT VIA PRIVATE CAR WITH SON IN STABLE CONDITION. MD AND CHARGE NURSE ARE AWARE OF THE DISCHARGE.
[2022-11-14 16:56] LABS: EOSINOPHILS % (MANUAL) 6 % (0-4); LYMPHOCYTES % (MANUAL) 24 % (16-48); MONOCYTES % (MANUAL) 4 % (0-11.0); NEUTROPHILS % (MANUAL) 66 (42-76)
== END 2022-11-14 13:00 | disposition home or self-care (01) | DRG 377 ==
LOC: ER 20:01 → TELE1 23:57 → TELE-TD 11-08 14:08 → ICU 11-08 14:47 → TELE 11-14 05:00
PROVIDERS: ADMIT Student in an Organized Health Care Education/Training Program; ATTEND Nurse Practitioner Acute Care
PROC: 30233N1 Transfusion of Nonautologous Red Blood Cells into Peripheral Vein, Percutaneous Approach (ICD-10-PCS; principal; 2022-11-07)
PROC: 30233K1 Transfusion of Nonautologous Frozen Plasma into Peripheral Vein, Percutaneous Approach (ICD-10-PCS; 2022-11-08)
PROC: 05HB33Z Insertion of Infusion Device into Right Basilic Vein, Percutaneous Approach (ICD-10-PCS; 2022-11-10)
PROC: 30233M1 Transfusion of Nonautologous Plasma Cryoprecipitate into Peripheral Vein, Percutaneous Approach (ICD-10-PCS; 2022-11-11)
DX: K25.4 Chronic or unspecified gastric ulcer with hemorrhage (principal); D65 Disseminated intravascular coagulation [defibrination syndrome]; N17.0 Acute kidney failure with tubular necrosis; E44.0 Moderate protein-calorie malnutrition; D61.818 Other pancytopenia; D68.9 Coagulation defect, unspecified; I82.413 Acute embolism and thrombosis of femoral vein, bilateral; I82.433 Acute embolism and thrombosis of popliteal vein, bilateral; I82.442 Acute embolism and thrombosis of left tibial vein; E88.09 Other disorders of plasma-protein metabolism, not elsewhere classified; D50.0 Iron deficiency anemia secondary to blood loss (chronic); Z87.11 Personal history of peptic ulcer disease; Z20.822 Contact with and (suspected) exposure to COVID-19; Z85.46 Personal history of malignant neoplasm of prostate; Z90.79 Acquired absence of other genital organ(s); D64.9 Anemia, unspecified; N18.9 Chronic kidney disease, unspecified; N40.0 Benign prostatic hyperplasia without lower urinary tract symptoms; Z95.828 Presence of other vascular implants and grafts; R60.9 Edema, unspecified; D72.819 Decreased white blood cell count, unspecified; E87.6 Hypokalemia; D72.821 Monocytosis (symptomatic); Z87.19 Personal history of other diseases of the digestive system
CPT/HCPCS: 36415; 71045-TC; 71250-TC; 76700-TC; 80048-TC; 80053-TC; 80076-TC; 81001; 82378; 82607-TC; 82728-TC; 83540-TC; 83735-TC; 84100-TC; 84153-TC; 84154-TC; 84439-TC; 84443-TC; 84484-TC; 85025-TC; 85027-TC; 85045-TC; 85396; 85730-TC; 86140-TC; 86225; 86235; 86431-TC; 86704; 86705; 86706; 86803; 86850; 86850-TC; 86860; 86870; 86880; 86885; 86900; 86901; 86905; 86906; 86971; 87040-TC; 87086-TC; 87340; 93970-TC; A4223; A6403; C9113; C9803; G0378; J0692; J1200; J2916; J3430; J3475; J3480; J3490; J7030; J7050; J7060; P9012; P9016; P9017